=== PATIENT | male | born 2000 | race Caucasian/White ===

== ENCOUNTER 2022-11-13 20:30 | Emergency (ER) | payer OTHER | END 2022-11-13 20:43 | disposition left against medical advice (07) | LOC: CSHERS 20:30 | DX: Z53.21 Procedure and treatment not carried out due to patient leaving prior to being seen by health care provider (principal) ==

== ENCOUNTER 2022-11-13 23:21 | Emergency (ER) | payer OTHER | END 2022-11-14 01:20 | disposition home or self-care (01) | LOC: CSHERS 23:21 | DX: J02.9 Acute pharyngitis, unspecified (principal) | CPT/HCPCS: 87081; 87430; 99283 ==